=== PATIENT | male | born 1930 | race Caucasian/White ===

== ENCOUNTER 2021-01-16 17:30 | Observation (INO) | payer MEDICARE, BC ==
[2021-01-16] MEDS ORDERED: Morphine 4 MG/ML VIAL ONE (18:30)
[2021-01-16] MEDS ORDERED: Ondansetron PF 4 MG/2 ML Vial ONE (18:30)
[2021-01-16 18:52] LABS: ALT (SGPT) 18 U/L (8-55); AST (SGOT) 20 U/L (5-34); Alkaline Phosphatase 118 U/L (40-110); Anion Gap 20 mmol/L (10-20); BUN (Urea Nitrogen) 67 mg/dL (8.4-25.7); Bilirubin, Total 1.4 mg/dL (0.2-1.2); CK (CPK) 24 U/L (30-200); Calc. Creatinine Clearance 0 mL/min (70-130); Calcium 9.9 mg/dL (7.8-10.44); Carbon Dioxide 26 mmol/L (23-31); Chloride 96 mmol/L (98-107); Globulin 3.1 g/dL (2.4-3.5); Glucose 113 mg/dL (83-110); Lipase 18 U/L (8-78); Magnesium 1.9 mg/dL (1.6-2.6); Potassium 4.4 mmol/L (3.5-5.1); Protein, Total 7.1 g/dL (5.8-8.1); Sodium 138 mmol/L (136-145)
[2021-01-16 18:53] LABS: #Basophils 0.2 10x3/uL (0.0-0.2); #Eosinphils 0.8 10x3/uL (0.0-0.5); #Neutrophils 16.5 10x3/uL (1.5-8.4); %Basophils 0.8 % (0.0-2.0); %Eosinophils 3.9 % (0.0-6.0); %Lymphocytes 8.9 % (18.0-47.0); %Neutrophils 80.5 % (40.0-75.0); Hemoglobin 16.6 g/dL (13.5-17.5); Mean Corpuscular HGB CONC 33.4 g/dL (32.0-36.0); Mean Corpuscular Hemoglobin 32.1 pg (27.0-33.0); Mean Corpuscular Volume 96.1 fl (81.2-95.1); Mean Platelet Volume 10.4 fl (7.4-10.4); Platelet Count 1020 10x3/uL (150-450); RBC Distribution Width 14.7 % (11.5-14.5); Red Blood Cell (RBC) Count 5.17 10x6/uL (4.32-5.72); White Blood Cell (WBC) Count 20.5 10x3/uL (3.5-10.5)
[2021-01-16 19:12] LABS: CKMB 1.2 ng/mL (0-6.6)
[2021-01-16 20:52] LABS: Bilirubin Neg (Negative); Blood, Urine Negative (Negative); Clarity Clear (Clear); Glucose, Urine (Dipstick) Normal (Negative); Ketone, Urine Negative (Negative); Leukocyte Negative (Negative); Nitrite Negative (Negative); Protein, Urine (Dipstick) Negative (Neg-Trace); Urobilinogen Normal mg/dL (Less than 2)
[2021-01-16] MEDS ORDERED: Allopurinol 100 MG TAB PO SCH (23:15)
[2021-01-17 00:50] VITALS: BMI 23.6
[2021-01-17] MEDS ORDERED: Atorvastatin Calcium 40 MG TAB PO SCH ×2 (01:30→21:00)
[2021-01-17] MEDS ORDERED: Cefepime 2 GM VIAL ONE (01:35)
[2021-01-17] MEDS ORDERED: metroNIDAZOLE 500 MG/100 ML BAG ONE (01:36)
[2021-01-17] MEDS: Furosemide 40 MG/4 ML VIAL SLOW IVP SCH ×2 (01:39→01:42)
[2021-01-17] MEDS: Cefepime 2 GM in Sodium Chloride 0.9% 100 ML IVPB SCH ×2 (01:43→15:27)
[2021-01-17] MEDS: metroNIDAZOLE 500 MG in Premix Bag 1 BAG IVPB SCH ×2 (02:58→15:19)
[2021-01-17 06:46] LABS: Platelet Count 919 10x3/uL (150-450)
[2021-01-17 06:48] LABS: #Basophils 0.1 10x3/uL (0.0-0.2); #Eosinphils 0.8 10x3/uL (0.0-0.5); #Monocytes 1.1 10x3/uL (0.0-1.1); #Neutrophils 16.9 10x3/uL (1.5-8.4); %Basophils 0.6 % (0.0-2.0); %Eosinophils 3.6 % (0.0-6.0); %Lymphocytes 8.2 % (18.0-47.0); %Monocytes 5.2 % (0.0-10.0); %Neutrophils 81.9 % (40.0-75.0); Hemoglobin 16.2 g/dL (13.5-17.5); Mean Corpuscular HGB CONC 32.3 g/dL (32.0-36.0); Mean Corpuscular Hemoglobin 31.8 pg (27.0-33.0); Mean Corpuscular Volume 98.2 fl (81.2-95.1); Mean Platelet Volume 10.2 fl (7.4-10.4); RBC Distribution Width 14.6 % (11.5-14.5); White Blood Cell (WBC) Count 20.7 10x3/uL (3.5-10.5)
[2021-01-17 07:05] LABS: ALT (SGPT) 14 U/L (8-55); AST (SGOT) 15 U/L (5-34); Albumin 3.7 g/dL (3.4-4.8); Alkaline Phosphatase 112 U/L (40-110); Anion Gap 17 mmol/L (10-20); BUN (Urea Nitrogen) 64 mg/dL (8.4-25.7); Bilirubin, Total 1.5 mg/dL (0.2-1.2); Calc. Creatinine Clearance 26 mL/min (70-130); Calcium 9.6 mg/dL (7.8-10.44); Carbon Dioxide 30 mmol/L (23-31); Chloride 97 mmol/L (98-107); Glucose 78 mg/dL (83-110); Magnesium 1.7 mg/dL (1.6-2.6); Potassium 3.2 mmol/L (3.5-5.1); Protein, Total 6.7 g/dL (5.8-8.1); Sodium 141 mmol/L (136-145)
[2021-01-17 08:02] LABS: Large Platelets SLIGHT; Platelet Morphology Comment Appears Increased
[2021-01-17 08:04] LABS: RBC Morphology Normal
[2021-01-17 08:07] LABS: Reflex for Review?? YES
[2021-01-17] MEDS ORDERED: Enoxaparin Sodium 30 MG/0.3 ML SYRINGE SC SCH (09:00)
[2021-01-17] MEDS ORDERED: Aspirin 81 mg Enteric Coated Tablet PO SCH (09:00)
[2021-01-17] MEDS ORDERED: Citalopram 20 MG TAB PO SCH (09:00)
[2021-01-17] MEDS ORDERED: Carvedilol 6.25 MG TAB PO SCH (09:00)
[2021-01-17] MEDS ORDERED: Magnesium 2 GM/50 ML 2 GM in Premix Bag 1 BAG IVPB SCH (09:00)
[2021-01-17] MEDS ORDERED: Potassium Chloride 20 MEQ TAB PO SCH (09:00)
[2021-01-17] MEDS: Furosemide 40 MG TAB PO SCH ×2 (10:08→15:27)
[2021-01-17] MEDS: Sildenafil Citrate 20 MG TAB PO SCH ×2 (10:31→15:27)
[2021-01-17] MEDS ORDERED: metroNIDAZOLE 500 MG in Premix Bag 1 BAG IVPB SCH (16:00)
[2021-01-17 16:25] VITALS: BP 104/64; TEMP 97.9
[2021-01-17 16:32] LABS: SARS-CoV-2 PCR by NAA Not Detected (NotDetected)
[2021-01-17] MEDS ORDERED: rOPINIRole HCl 1 MG TAB PO SCH (21:00)
[2021-01-17] MEDS ORDERED: Montelukast Sodium 10 mg Tablet PO SCH (21:00)
[2021-01-18] MEDS ORDERED: Magnesium Oxide 400 MG TAB PO SCH (09:00)
== END 2021-01-17 19:55 | disposition home or self-care (01) ==
LOC: CSHERS 17:30 → CSHTELE 01-17 00:28
PROVIDERS: ADMIT Family Medicine; ATTEND Physician Assistant
DX: K80.20 Calculus of gallbladder without cholecystitis without obstruction (principal); I13.0 Hypertensive heart and chronic kidney disease with heart failure and stage 1 through stage 4 chronic kidney disease, or unspecified chronic kidney disease; I50.33 Acute on chronic diastolic (congestive) heart failure; N18.4 Chronic kidney disease, stage 4 (severe); D72.829 Elevated white blood cell count, unspecified; D47.3 Essential (hemorrhagic) thrombocythemia; I48.0 Paroxysmal atrial fibrillation; J45.909 Unspecified asthma, uncomplicated; E78.5 Hyperlipidemia, unspecified; G25.81 Restless legs syndrome; Z85.038 Personal history of other malignant neoplasm of large intestine; Z85.46 Personal history of malignant neoplasm of prostate; Z95.0 Presence of cardiac pacemaker; Z79.899 Other long term (current) drug therapy; Z79.82 Long term (current) use of aspirin; E87.6 Hypokalemia; E83.42 Hypomagnesemia; Z20.822 Contact with and (suspected) exposure to COVID-19
CPT/HCPCS: 51701; 71045; 74176; 76705; 78226; 80053 ×2; 81003; 82550; 82553; 83690; 83735 ×2; 83880; 84484; 85025 ×2; 87040; 87086; 93005; 94640; 96365; 96366; 96372; 96375 ×2; 96376; 99285; A9537; G0378 ×2; U0003; U0005; 36415; 85060; 87635; J0692; J1650; J1940; J1956; J2270; J2405; J3475; J3490; J7620